=== PATIENT | male | born 1985 | race Caucasian/White ===

== ENCOUNTER 2023-10-11 06:14 | Emergency (ER) | payer OTHER, SELFPAY ==
[2023-10-11 06:15] VITALS: BP 150/79; PULSE 84; RESP 16; TEMP 36.1; O2SAT 98; BMI 31.8
--- NOTE | 2023-10-11 06:38 | RAD_ITS ---
STUDY: X-RAY - RIGHT ANKLE REASON FOR EXAM: Male, 37 years old. Injury TECHNIQUE: 3 view(s) of the ankle. COMPARISON: None. FINDINGS: There is no evidence of fracture or dislocation. There are no significant degenerative changes. There are no radiodense foreign bodies. RAD/Ankle min 3 Views IMPRESSION: No fracture or dislocation. Electronically Signed: David Norton MD at 7:52 EDT ,
--- NOTE | 2023-10-11 06:38 | ED.VIS.LOWEX ---
HPI History of Present Illness Chief Complaint: Lower Extremity Injury Informant: patient Onset/Context/Timing Onset: Yesterday Narrative Narrative: Patient injured his right ankle yesterday, states he was in socks on wooden steps at home, his cat got in the way any missed a step with his left foot, resulting in his right foot slipping off of the step above it, he noticed some pain in his right ankle was not that bad, but it was worse this morning when he woke up especially when he tried to bear weight on it and take his socks off, he states right now with resting is not too bad. He denies any other pain or injury. No numbness or tingling. PFSH PFSH Medical History no medical history no medical history Home Medications ?Medication ?Instructions ?Recorded ?Last Taken ?Type NK 10/11/23 Unknown History Allergy/AdvReac Type Severity Reaction Status Date / Time No Known Allergies Allergy Verified 10/11/23 06:16 Surgical History no surgical history Social History Smoking Status: Never smoker ROS ROS ED Constitutional Constitutional ED: Denies chills or fever(s) Musculoskeletal Musculoskeletal: Reports extremity pain; Denies neck pain Integumentary Denies Abrasions, rash or wounds Neurologic Neurologic: Denies paresthesias or weakness EXAM Physical Exam Const Vital Signs: 10/11/23 06:15 Temperature 96.9 F L Temperature Source Temporal Pulse Rate 84 Respiratory Rate 16 Blood Pressure 150/79 H Blood Pressure Mean 102 Pulse Ox 98 Positive well nourished and well developed General Appearance ED: well developed and NAD Neck full ROM and supple Back/Spine normal ROM and normal to inspection Extremity Extremity Narrative: Able to plantarflex and dorsiflex the right ankle, but limited at extremes due to pain. There are some mild swelling to seems to be posterior to the malleoli, the Achilles is intact with a normal Singletary test. The majority of the tenderness is medial, just posterior to the medial malleolus and not including the malleoli. The base of the fifth metatarsal and the proximal fibula are also nontender as are the rest of the bones in the lower leg and foot. No significant discomfort with applying medial or lateral stress on the joint the ankle. Neuro oriented x3, no focal motor deficits and no sensory deficits noted Sensorium / Orientation: alert Psych mental status grossly normal and thought process normal Skin no wounds Rashes: no rashes MDM MDM MDM Narrative Medical decision making narrative: Three-view x-ray series of the right ankle were obtained and on my interpretation negative for acute fracture. Patient reassured, likely sprain. Given an Saeed wrap which is probably all that he will need here since this was not necessarily a major inversion injury, relative rest and NSAIDs advised follow-up as needed. Discharge Plan Triage Chief Complaint: Lower Extremity Injury ED Provider: Tiburcio Spann Dx/Rx/DC Orders Clinical Impression: Right ankle sprain Instructions: ED Bandage Elastic Wrap, ED Ankle Sprain (Adult) Prescriptions: No Action NK Primary Care Provider: NOT,DEFINED Referrals: Yemi Chong, [Med Staff - Active Staff] - 10-14 Days if not better Activity Restrictions/Additional Instructions: Use NSAIDs as needed for pain, such as ibuprofen or Aleve. May also rest and ice as needed. Print Language: [place]an Disposition Disposition: Home, Self Care
[2023-10-11] MEDS: Ibuprofen 600 MG Tablet PO (07:03)
== END 2023-10-11 07:07 | disposition home or self-care (01) ==
LOC: ED 07:06
PROVIDERS: Emergency Provider Emergency Medicine; Visit Provider Emergency Medicine
DX: S93.401A Sprain of unspecified ligament of right ankle, initial encounter (principal); W10.9XXA Fall (on) (from) unspecified stairs and steps, initial encounter
CPT/HCPCS: 73610; 99282